=== PATIENT | female | born 1990 | race Caucasian/White ===

== ENCOUNTER 2018-01-11 09:30 | Inpatient (IN) | payer BC ==
[2018-01-11 10:15] VITALS: BMI 34.7
[2018-01-11] MEDS ORDERED: Butorphanol Tartrate 1 MG/ML VIAL SLOW IVP PRN (10:44)
[2018-01-11] MEDS ORDERED: Lactated Ringer's 1,000 ML IV SCH (10:44)
[2018-01-11] MEDS ORDERED: NS w/ Oxytocin 10 units 500 ML IV SCH (10:44)
[2018-01-11] MEDS ORDERED: Ondansetron HCl/PF 4 MG/2 ML Vial IVP PRN ×4 (10:44→22:41)
[2018-01-11] MEDS ORDERED: HYDROcodone/Acetaminophen 5/325 mg Tablet PO PRN ×2 (10:44)
[2018-01-11] MEDS ORDERED: Carboprost 250 MCG/ML AMP IM PRN (10:44)
[2018-01-11] MEDS ORDERED: Diphenoxylate HCl/Atropine Tablet PO PRN (10:44)
[2018-01-11] MEDS ORDERED: Lidocaine 1% (PF) 30 ML VIAL SC PRN (10:44)
[2018-01-11] MEDS ORDERED: Promethazine HCl 25 MG/ML VIAL IM PRN ×3 (10:44→22:41)
[2018-01-11] MEDS ORDERED: Ibuprofen 800 MG TAB PO PRN (10:44)
[2018-01-11] MEDS ORDERED: NS / Oxytocin 40 units/1000ml 1,000 ML IV PRN (10:44)
[2018-01-11 11:07] LABS: Hemoglobin 10.7 g/dL (12.0-16.0); Mean Corpuscular HGB CONC 33.3 g/dL (32.0-36.0); Mean Corpuscular Hemoglobin 29.1 pg (27.0-31.0); Mean Corpuscular Volume 87.2 fl (81.0-99.0); Mean Platelet Volume 7.3 fL (7.4-10.4); Platelet Count 207 thou/uL (130-400); RBC Distribution Width 13.1 % (11.5-14.5); Red Blood Cell (RBC) Count 3.69 mill/uL (4.20-5.40); White Blood Cell (WBC) Count 10.5 thou/uL (4.8-10.8)
[2018-01-11] MEDS ORDERED: Bupivacaine 0.75% 13.4 ML, fentaNYL Citrate/PF 400 MCG in Sodium Chloride 0.9% 78.6 ML EPIDURAL SCH (11:45)
[2018-01-11] MEDS ORDERED: DISCONTINUE ALL PREVIOUS NARCOTICS FS SCH (11:45)
[2018-01-11 11:50] LABS: HBSAg Index 0.12 S/CO (0-0.99); Hep B Surf Ag Non-Reactive S/CO (NonReactive)
[2018-01-11 11:52] LABS: Syphilis Antibody Nonreactive (Nonreactive); Syphilis Antibody Index 0.03 S/CO (<1.00 Non-Reactive)
[2018-01-11] MEDS ORDERED: Naloxone HCl 0.4 mg/ml Vial IVP PRN ×4 (11:56→22:41)
[2018-01-11] MEDS ORDERED: Lactated Ringer's 500 ML IV PRN (11:56)
[2018-01-11] MEDS ORDERED: Eucerin (Mineral Oil/Petrolatum,White) 30 gm Jar TOP PRN ×2 (11:56→22:41)
[2018-01-11] MEDS ORDERED: diphenhydrAMINE 50 MG/ML VIAL IVP PRN ×2 (11:56→22:41)
[2018-01-11] MEDS ORDERED: ePHEDrine/0.9% NaCl/PF SYRINGE 50 mg/10 ml SLOW IVP PRN (11:56)
[2018-01-11] MEDS ORDERED: Acetaminophen 325 MG TAB PO PRN (11:56)
[2018-01-11] MEDS ORDERED: Fentanyl 4mcg/Marcaine 0.1% Cassette 100 ML EPIDURAL SCH (12:00)
[2018-01-11] MEDS ORDERED: Communication Order-Pharmacy FS SCH ×2 (12:00→22:45)
[2018-01-11] MEDS: Lactated Ringer's 1,000 ML IV SCH (12:21)
[2018-01-11] MEDS ORDERED: Dexamethasone 20 MG/5 ML VIAL ONE (12:23)
[2018-01-11] MEDS ORDERED: PHENYLEPHRINE-NS 100 MCG/ML 10 ML SYRINGE ONE ×2 (12:23→21:57)
[2018-01-11] MEDS ORDERED: Ketorolac Tromethamine 30 MG/ML VIAL ONE ×2 (12:23→21:30)
--- NOTE | 2018-01-11 14:15 | PDOC.LDHP ---
Labor and Delivery H&P Allergies/Adverse Reactions: Allergies Allergy/AdvReac Type Severity Reaction Status Date / Time No Known Allergies Allergy Unverified 01/11/18 10:11
[2018-01-11] MEDS ORDERED: CEFAZOLIN/Water 2 GM/20 ML SYRINGE ONE (21:18)
[2018-01-11] MEDS ORDERED: Bicitra 30 ML UDCUP ONE (21:18)
[2018-01-11] MEDS ORDERED: Lidocaine 2% 10 ML INJ ONE (21:21)
[2018-01-11] MEDS ORDERED: CEFAZOLIN/Water 2 GM/20 ML SYRINGE SLOW IVP SCH (21:30)
[2018-01-11] MEDS ORDERED: Bicitra 30 ML UDCUP PO SCH (21:30)
[2018-01-11] MEDS ORDERED: Azithromycin 500 MG in Sodium Chloride 0.9% 250 ML 250 ML IVPB SCH (21:30)
[2018-01-11] MEDS ORDERED: Dexamethasone 4 mg/ml Vial ONE (21:30)
[2018-01-11] MEDS ORDERED: Oxytocin 10 UNITS/ML VIAL ONE (21:30)
[2018-01-11] MEDS ORDERED: Bupivacaine PF 0.5% 30 ML VIAL ONE (21:49)
[2018-01-11] MEDS ORDERED: Promethazine HCl 25 MG/ML VIAL ONE (21:50)
[2018-01-11] MEDS ORDERED: Fentanyl 100 MCG/2 ML VIAL ONE (21:57)
[2018-01-11 22:08] LABS: Actual Bicarbonate (HCO3v) 21 mEq/L (22-28); Analyzer IN Cardio OR; Base Excess -4.6 mEq/L (-2.0 to +3.0)
[2018-01-11] MEDS ORDERED: Meperidine HCl/PF 25 MG/ML VIAL ONE (22:13)
[2018-01-11] MEDS ORDERED: Morphine PF 1 MG/ML SYR ONE (22:27)
[2018-01-11] MEDS ORDERED: Naloxone HCl 0.4 mg/ml Vial IV PRN (22:41)
[2018-01-11] MEDS ORDERED: HYDROmorphone 2 MG/ML VIAL SLOW IVP PRN (22:41)
[2018-01-11] MEDS ORDERED: Promethazine HCl 25 MG SUPP PR PRN (22:41)
[2018-01-11] MEDS ORDERED: Meperidine HCl/PF 25 MG/ML VIAL SLOW IVP PRN (22:41)
[2018-01-11] MEDS ORDERED: Ketorolac Tromethamine 30 MG/ML VIAL IVP SCH (22:45)
[2018-01-12] MEDS ORDERED: Ondansetron HCl/PF 4 MG/2 ML Vial IVP PRN (01:53)
[2018-01-12] MEDS ORDERED: diphenhydrAMINE 25 MG CAP PO PRN (01:53)
[2018-01-12] MEDS ORDERED: Measles/Mumps/Rubella 10 MCG/0.5 ML VIAL SC ONE (01:53)
[2018-01-12] MEDS ORDERED: Adacel (T-DAP) 0.5 ML VIAL IM ONE (01:53)
[2018-01-12] MEDS ORDERED: NS / Oxytocin 40 units/1000ml 1,000 ML IV SCH (01:53)
[2018-01-12] MEDS ORDERED: Bisacodyl 10 MG SUPP PR PRN (01:53)
[2018-01-12] MEDS ORDERED: Simethicone Chewable 80 MG TAB PO PRN (01:53)
[2018-01-12] MEDS ORDERED: Promethazine HCl 25 MG/ML VIAL IM PRN (01:53)
[2018-01-12] MEDS ORDERED: Lactated Ringer's 1,000 ML IV SCH (01:53)
[2018-01-12] MEDS ORDERED: Lanolin Ointment 7 GM TUBE TOP PRN (01:53)
[2018-01-12] MEDS ORDERED: HYDROcodone/Acetaminophen 5/325 mg Tablet PO PRN ×3 (01:53→10:45)
[2018-01-12] MEDS: Lactated Ringer's 1,000 ML IV SCH (03:28)
[2018-01-12 05:33] LABS: Hemoglobin 8.1 g/dL (12.0-16.0); Mean Corpuscular HGB CONC 35.7 g/dL (32.0-36.0); Mean Corpuscular Hemoglobin 30.9 pg (27.0-31.0); Mean Corpuscular Volume 86.7 fl (81.0-99.0); Mean Platelet Volume 7.1 fL (7.4-10.4); Platelet Count 197 thou/uL (130-400); RBC Distribution Width 13.2 % (11.5-14.5); Red Blood Cell (RBC) Count 2.63 mill/uL (4.20-5.40); White Blood Cell (WBC) Count 10.5 thou/uL (4.8-10.8)
[2018-01-12] MEDS ORDERED: Ibuprofen 800 MG TAB PO SCH (06:00)
--- NOTE | 2018-01-12 07:14 | PDOC.PP ---
Post Progress Note Post Day #: 1 PO intake tolerated: yes Flatus: yes Ambulation: yes Vital Signs (12 hours) Temp Pulse Resp BP 01/12/18 04:00 99.5 F 87 16 113/71 01/12/18 02:30 98.2 F 80 16 114/59 L 01/12/18 01:30 99.3 F 84 16 122/61 Weight Weight 209 lb - Physical Examination Cardiovascular: no m/r/g, RRR Respiratory: clear to auscultation bilaterally Abdominal: + bowel sounds, lochia Extremities: negative homans (B) Skin: CS incision dry & intact Neurological: no gross focal deficits Psychiatric: A&Ox3, normal affect Result Diagrams: 01/12/18 04:42 Additional Labs: Post Labs Blood Type O POSITIVE 01/11/18 10:47 Hep Bs Antigen Non-Reactive S/CO (NonReactive) 01/11/18 10:47 (1) Arrest of dilation, delivered, current hospitalization Code(s): O62.1 - SECONDARY UTERINE INERTIA Status: Acute - Assessment/Plan doing well bandage dry. hct expected value. routine post cs care
--- NOTE | 2018-01-12 07:16 | OP ---
DATE OF PROCEDURE: 01/11/2018 TIME OF DICTATION: 2240 hours. PREOPERATIVE DIAGNOSIS: Nonreassuring heart rate tracing with failure to progress at 9 cm at 4 1 weeks' gestation. POSTOPERATIVE DIAGNOSES: Nonreassuring heart rate tracing with failure to progress at 9 cm at 41 weeks' gestation plus persistent right occiput posterior presentation with moderate meconium. PROCEDURE: Primary low transverse section without extension. SURGEON: Anibal Sandoval M.D. CAPTAIN WAITER/WAITRESS: Dmitry Rivera MD ANESTHESIA: Epidural. Nelson Crabtree M.D. ESTIMATED BLOOD LOSS: 1200 mL. MEDICATIONS: Two grams Ancef and 500 mg Zithromax intraoperatively. DEEP VENOUS THROMBOSIS PROPHYLAXIS: Sequential compression devices. DRAINS: Boogie to gravity. OPERATIVE FINDINGS: 1. Male ROP presentation with significant caput and molding, 8 pounds 4 ounces; 2, 8 Apgars; to nursery, gas pending. 2. Lower uterine segment without vertical extension, but wide hysterotomy accomplished for delivery of deep arrest infant head. 3. Normal appearing uterus, tubes, and ovaries. 4. Hemostasis with clearing urine at the end of the procedure. DISPOSITION: To the recovery room in good condition. DESCRIPTION OF OPERATIVE PROCEDURE: The patient had progressed to 9 cm and had been there for approx imately 3 hours. She began to have recurring prolonged variable decelerations to the 40s to 50s with long recovery. Decision was made to proceed with section on urgent basis. The patient was taken back and was dosed up to the appropriate level. She was given her 2 grams of Ancef prior to t he incision. Her epidural was somewhat sparing at the level of the skin and 10 mL of bupivacaine was injected at the level of the skin. A Pfannenstiel incision was made and carried down to the fascia. Midline was incised sharply superiorly and laterally with curved Gant scissors. Rectus dissected o ff sharply superiorly and inferiorly, divided in the midline. Peritoneum entered bluntly, taking car e to avoid trauma to the underlying viscera. Sascha O retractor placed inside. Low-transverse hyste rotomy made just above the level of the vesicouterine peritoneal fold. Because of the deep arrest, t his was at the level that the 's shoulder came out of the surgeon attempted to disengage the he ad, which was found to be right occiput posterior from his operating position on the patient's left. Assistance with elevation of the head by the nurse was carried out and the mobile sales assistant helped to break the vacuum and the deep arrest after the primary surgeon experienced fatigue with this. The primary surgeon then elevated the head, the rest of the way to hysterotomy delivered the . Cord clamp ed and cut and handed off to team in attendance. Cord gas was obtained. Cord blood sample was obtained. Placenta was removed manually. Hysterotomy was inspected and noted to be with the fin dings as noted in the operative findings. There was closed in a 2-layer level using 0 Monocryl sutur e. Small areas of bleeding along the edge of it were rendered hemostatic with a 0 chromic suture and then FloSeal was applied. After application of FloSeal, reinspection of the hysterotomy revealed it to be dry. The gutters were irrigated out bilaterally and noted to be dry and reinspection of hyste rotomy revealed it to be dry. The lap sponges had been placed inside to pack the bowel all the way w as removed. Counts were correct at this time and the Sascha O retractor removed. The rectus inspect ed and noted to be dry and the fascia reapproximated using running continuous 0 PDS suture. Subcutan eous tissue irrigated and rendered hemostatic with Bovie cautery, reapproximated using a 2-0 plain gu t. Skin reapproximated using 4-0 Monocryl and Dermabond and a pressure dressing applied. Uterus was noted to be firm afterwards. Estimated blood loss was 1200 mL secondary to the advanced nature of t he deep arrest and uterine atony; however, good uterine tone was noted at the end of the procedure. The patient received Zithromax 500 mg intraoperatively and was placed in the routine recovery with SC Ds and Boogie to drain.
[2018-01-12] MEDS: Ketorolac Tromethamine 30 MG/ML VIAL IVP PRN ×2 (08:34→15:05)
[2018-01-12] MEDS: Prenatal Vitamin 1 TAB PO SCH (09:11)
[2018-01-12] MEDS ORDERED: Meperidine HCl/PF 25 MG/ML VIAL IM PRN (10:45)
[2018-01-12] MEDS ORDERED: Zolpidem Tartrate 5 MG TAB PO PRN (10:45)
[2018-01-12] MEDS: Docusate Calcium (SURFAK) 240 MG CAP PO SCH (13:16)
[2018-01-12] MEDS ORDERED: Sodium Chloride 0.9% 10 ML ONE (14:03)
[2018-01-12] MEDS ORDERED: Bupivacaine/Epinephrine 0.25% 30 ML VIAL ONE (15:06)
[2018-01-12] MEDS ORDERED: Lidocaine 2% PF 5 ML VIAL ONE (15:06)
[2018-01-13] MEDS: Docusate Calcium (SURFAK) 240 MG CAP PO SCH ×3 (06:22→21:25)
[2018-01-13] MEDS: Ibuprofen 800 MG TAB PO SCH ×3 (06:23→21:25)
--- NOTE | 2018-01-13 07:28 | PDOC.PP ---
Post Progress Note Post Day #: 1 to 2 PO intake tolerated: yes Flatus: yes Ambulation: yes Vital Signs (12 hours) Temp Pulse Resp BP 01/12/18 20:00 98.3 F 101 H 18 121/70 Weight Weight 209 lb - Physical Examination General: NAD Cardiovascular: no m/r/g, RRR Respiratory: clear to auscultation bilaterally Abdominal: + bowel sounds, lochia, no distention, appropriately TTP Extremities: negative homans (B) Skin: CS incision dry & intact, no rash Neurological: no gross focal deficits Psychiatric: A&Ox3, normal affect Result Diagrams: 01/12/18 04:42 Additional Labs: Post Labs Blood Type O POSITIVE 01/11/18 10:47 Hep Bs Antigen Non-Reactive S/CO (NonReactive) 01/11/18 10:47 (1) Arrest of dilation, delivered, current hospitalization Code(s): O62.1 - SECONDARY UTERINE INERTIA Status: Acute - Assessment/Plan doing well. anticipate am 01/14 dc
[2018-01-13] MEDS: Prenatal Vitamin 1 TAB PO SCH (08:19)
[2018-01-14] MEDS: Ibuprofen 800 MG TAB PO SCH (06:02)
--- NOTE | 2018-01-14 07:29 | PDOC.PP ---
Post Progress Note Post Day #: 2.5 PO intake tolerated: yes Flatus: yes Ambulation: yes Vital Signs (12 hours) Temp Pulse Resp BP Pulse Ox 01/13/18 20:01 98.2 F 94 18 124/77 98 Weight Weight 209 lb - Physical Examination General: NAD Cardiovascular: no m/r/g, RRR Respiratory: clear to auscultation bilaterally, non-labored breathing Abdominal: + bowel sounds, lochia, no distention Extremities: negative homans (B) Skin: CS incision dry & intact, no rash Neurological: no gross focal deficits Psychiatric: A&Ox3, normal affect Result Diagrams: 01/12/18 04:42 Additional Labs: Post Labs Blood Type O POSITIVE 01/11/18 10:47 Hep Bs Antigen Non-Reactive S/CO (NonReactive) 01/11/18 10:47 (1) Arrest of dilation, delivered, current hospitalization Code(s): O62.1 - SECONDARY UTERINE INERTIA Status: Acute - Assessment/Plan doing well. dc home
[2018-01-14 08:24] VITALS: BP 135/63; TEMP 98.1
[2018-01-14] MEDS: Prenatal Vitamin 1 TAB PO SCH (09:09)
[2018-01-14] MEDS: Docusate Calcium (SURFAK) 240 MG CAP PO SCH (09:09)
== END 2018-01-14 11:00 | disposition home or self-care (01) | DRG 766 ==
LOC: L&D/OP 09:30 → L&D 10:23 → 3SW 01-12 01:15
PROVIDERS: ADMIT Obstetrics & Gynecology; ATTEND Obstetrics & Gynecology
PROC: 10D00Z1 Extraction of Products of Conception, Low, Open Approach (ICD-10-PCS; principal; 2018-01-11)
DX: O48.0 Post-term pregnancy (principal); O76 Abnormality in fetal heart rate and rhythm complicating labor and delivery; O77.0 Labor and delivery complicated by meconium in amniotic fluid; O64.0XX0 Obstructed labor due to incomplete rotation of fetal head, not applicable or unspecified; O62.1 Secondary uterine inertia; Z3A.41 41 weeks gestation of pregnancy; Z37.0 Single live birth
CPT/HCPCS: 36415; 51702; 82805; 85027; 86780; 86850; 86900; 86901; 87340; 99285; A4216; J0456; J1100; J1885; J2001; J2175; J2274; J2550; J2590; J3010; J7050; S0020

== ENCOUNTER 2020-01-30 09:55 | Outpatient (CLI) | payer BC, OTHER ==
[2020-01-31 12:20] LABS: SARS-CoV-2 MS2 Positive; SARS-CoV-2 N Gene Negative; SARS-CoV-2 S Gene Negative; SARS-CoV-2 orf1ab Negative
== END 2020-01-30 09:56 | disposition home or self-care (01) ==
LOC: SCSLAB 09:55
PROVIDERS: ATTEND Obstetrics & Gynecology
DX: Z01.812 Encounter for preprocedural laboratory examination (principal); Z11.59 Encounter for screening for other viral diseases
CPT/HCPCS: 87635; U0003

== ENCOUNTER → 2020-02-03 13:50 | Inpatient (IN) | payer BC ==
[2020-02-01 06:05] VITALS: BMI 36.6
[2020-02-01 06:15] LABS: Hemoglobin 10.1 g/dL (12.0-16.0); Mean Corpuscular Hemoglobin 26.9 pg (27.0-31.0); Mean Corpuscular Volume 81.5 fL (78.0-98.0); Platelet Count 224 thou/uL (130-400); RBC Distribution Width 15.1 % (11.5-14.5); Red Blood Cell (RBC) Count 3.76 mill/uL (4.20-5.40); White Blood Cell (WBC) Count 6.1 thou/uL (4.8-10.8)
--- NOTE | 2020-02-01 06:17 | HP ---
REASON FOR ADMISSION: Repeat section at term. HISTORY OF PRESENT ILLNESS: Ms. Tang is a 30-year-old 2, para 1, with an EDC of 02/06, 39 weeks and 2 days, who presents for repeat . . Blood type O positive, antibody negative, Pap negative, rubella immune, VDRL nonreactive, hepatitis B, GC, chlamydia negative. Group B strep negative. PAST MEDICAL HISTORY: None. SURGICAL HISTORY: . ALLERGIES: NONE. MEDICINES: vitamins. SOCIAL HISTORY: Denies tobacco, alcohol, or IV drug use. FAMILY HISTORY: Noncontributory. REVIEW OF SYSTEMS: Noncontributory. PHYSICAL EXAMINATION: GENERAL: White female, in no acute distress. LUNGS: Clear to auscultation bilaterally. HEART: Regular rate and rhythm. ABDOMEN: Soft, nontender. No rebound or guarding. Fundal height 39. FHTs 140s. GENITOURINARY: Vulva without lesions. Vagina without discharge. EXTREMITIES: No clubbing, cyanosis, or edema. IMPRESSION: Repeat section at term with estimated date of confinement of 02/07/20. PLAN: Repeat section with appropriate antibiotic and DVT prophylaxis. Patient is COVID-19 negative on 01/29. Job ID: [id number]
[2020-02-01 06:59] LABS: Syphilis Antibody Nonreactive (Nonreactive); Syphilis Antibody Index 0.03 S/CO (<1.00 Non-Reactive)
[2020-02-01 07:00] LABS: HBSAg Index 0.14 S/CO (0-0.99); Hep B Surf Ag Non-Reactive S/CO (NonReactive)
--- NOTE | 2020-02-01 08:43 | OP ---
DATE OF PROCEDURE: 02/01/2020 TIME OF SERVICE: 0800. PREOPERATIVE DIAGNOSIS: Prior section x1 at term. POSTOPERATIVE DIAGNOSIS: Prior section x1 at term plus lower uterine segment dehiscence. PROCEDURE PERFORMED: Repeat low-transverse section without extension. INTERNAL COMBUSTION ENGINE SUBASSEMBLER: ALONDRA Mendoza. ANESTHESIA: Subarachnoid block. MEDICATIONS: 2 g Ancef preincision. DVT PROPHYLAXIS: SCDs. DRAINS: Boogie to gravity, clear urine. OPERATIVE FINDINGS: 1. Vigorous male infant, cephalic presentation, clear fluid, to nursery, weight and Apgars pending. 2. QBL pending. 3. Approximately 3 x 2 cm lower uterine segment dehiscence with serosa only present. 4. Counts correct at the end of the procedure. DISPOSITION: Recovery room in good condition. DESCRIPTION OF PROCEDURE: After obtaining appropriate informed consent, the patient was taken to the operating room and subarachnoid block was achieved without difficulty. The patient was prepped and draped in the usual manner for . Previous Pfannenstiel identified, incised sharply, carried down the fascia, extended superiorly and laterally with curved Gant scissors, rectus dissected off sharply superiorly and inferiorly, divided in the midline. Peritoneal adhesions and omental adhesions to the lower uterine segment, anterior abdominal wall were encountered. These were taken down bluntly and sharply. The Sascha O retractor was placed inside. After placing Sascha O, it was realized that there was a significant dehiscence in the midline of the lower uterine segment. The 's head was visualized through the amnion at this level and the amnion was broken. Clear fluid noted and the 's head elevated through the dehisced hysterotomy delivered on the abdomen. Suction cord clamped and cut, handed off to Team in attendance. Usual cord blood sample obtained, placenta removed manually. The placenta was anterior, mid uterine. The lower margin came down to the level of dehiscence but no abnormal placentation or adherence was noted. The hysterotomy was noted to be without extension and was actually quite sick after removal of the distention from the indwelling fetus and was closed using a running locking #1 Monocryl suture x2. Good hemostasis was noted. Gutters were irrigated out bilaterally and reinspection of hysterotomy revealed it to be dry. Boogie catheter was checked and clear urine was noted in the tube. No evidence of bladder injury was noted. Sascha O retractor was removed. The rectus was inspected and noted to be dry. The fascia was reapproximated using an 0-PDS suture x2. Subcutaneous tissue was irrigated, rendered hemostatic with Bovie cautery, reapproximated using 2-0 plain gut, skin reapproximated using 4-0 Monocryl and Dermabond. Job ID: [id number]
[2020-02-01] MEDS: Lactated Ringer's 1,000 ML IV SCH ×4 (11:00→23:31)
[2020-02-01] MEDS: Prenatal Vitamin 1 TAB PO SCH (12:53)
[2020-02-01] MEDS: Ketorolac Tromethamine 30 MG/ML VIAL IVP PRN (16:24)
[2020-02-01] MEDS: Docusate Calcium (SURFAK) 240 MG CAP PO SCH (23:17)
[2020-02-02] MEDS: Ketorolac Tromethamine 30 MG/ML VIAL IVP PRN (01:18)
[2020-02-02 07:18] LABS: Hemoglobin 8.5 g/dL (12.0-16.0); Mean Corpuscular HGB CONC 33.6 g/dL (32.0-36.0); Mean Corpuscular Volume 83.3 fL (78.0-98.0); Platelet Count 181 thou/uL (130-400); RBC Distribution Width 14.7 % (11.5-14.5); Red Blood Cell (RBC) Count 3.03 mill/uL (4.20-5.40)
[2020-02-02] MEDS: Docusate Calcium (SURFAK) 240 MG CAP PO SCH ×2 (08:58→21:54)
[2020-02-02] MEDS: Simethicone Chewable 80 MG TAB PO PRN ×2 (08:58→21:53)
[2020-02-02] MEDS: Prenatal Vitamin 1 TAB PO SCH (08:58)
[2020-02-02] MEDS: Ibuprofen 800 MG TAB PO SCH ×2 (09:01→15:56)
--- NOTE | 2020-02-02 09:39 | PDOC.PP ---
Post Progress Note Post Day #: 1 PO intake tolerated: yes Flatus: yes Ambulation: yes Vital Signs (12 hours) Temp Pulse Resp BP Pulse Ox 02/02/20 08:05 97.7 F 77 18 114/65 97 02/02/20 04:10 98.0 F 85 18 114/57 L 02/02/20 01:00 98.4 F 73 18 111/58 L Weight Weight 220 lb - Physical Examination General: NAD Cardiovascular: no m/r/g, RRR Respiratory: clear to auscultation bilaterally, non-labored breathing Abdominal: + bowel sounds, lochia, no distention Extremities: negative homans (B) Skin: CS incision dry & intact Neurological: no gross focal deficits Psychiatric: A&Ox3, normal affect Result Diagrams: 02/02/20 07:02 Additional Labs: Post Labs Blood Type O POSITIVE 02/01/20 06:06 Hep Bs Antigen Non-Reactive S/CO (NonReactive) 02/01/20 06:06 - Assessment/Plan post cd day 1. hct 30 to 25. doing well home 02/02 or 02/03
[2020-02-02] MEDS: Lactated Ringer's 1,000 ML IV SCH ×2 (15:15→23:13)
[2020-02-03] MEDS: Ibuprofen 800 MG TAB PO SCH ×2 (01:13→06:34)
--- NOTE | 2020-02-03 06:56 | PDOC.PP ---
Post Progress Note Post Day #: 2 PO intake tolerated: yes Flatus: yes Ambulation: yes Vital Signs (12 hours) Temp Pulse Resp BP Pulse Ox 02/03/20 00:00 98.4 F 70 16 106/57 L 02/02/20 19:21 97.9 F 66 16 111/73 99 Weight Weight 220 lb - Physical Examination General: NAD Cardiovascular: no m/r/g, RRR Respiratory: clear to auscultation bilaterally, non-labored breathing Abdominal: + bowel sounds, lochia, no distention, appropriately TTP Extremities: negative homans (B) Skin: CS incision dry & intact, no rash Neurological: no gross focal deficits Psychiatric: A&Ox3, normal affect Result Diagrams: 02/02/20 07:02 Additional Labs: Post Labs Blood Type O POSITIVE 02/01/20 06:06 Hep Bs Antigen Non-Reactive S/CO (NonReactive) 02/01/20 06:06 - Assessment/Plan doing well desires dc. will send home
[2020-02-03 08:16] VITALS: BP 131/80; TEMP 99
[2020-02-03] MEDS: Prenatal Vitamin 1 TAB PO SCH (09:40)
[2020-02-03] MEDS: Docusate Calcium (SURFAK) 240 MG CAP PO SCH (09:40)
[~2020-02-03 13:50] MED LIST: Adacel (T-DAP) 0.5 ML SYRINGE IM ONE; Bicitra 30 ML UDCUP PO SCH; Butorphanol Tartrate 1 MG/ML VIAL SLOW IVP PRN; CEFAZOLIN 2 GM in Premix Bag 1 BAG IVPB SCH; Communication Order-Pharmacy FS SCH; Dexamethasone 20 MG/5 ML VIAL ONE; Famotidine/PF 20 mg/2ml Vial ONE; HYDROcodone/Acetaminophen 5/325 mg Tablet PO PRN; HYDROmorphone 2 MG/ML VIAL SLOW IVP PRN; Ibuprofen 800 MG TAB PO SCH; Ketorolac Tromethamine 30 MG/ML VIAL IVP PRN; Ketorolac Tromethamine 30 MG/ML VIAL ONE; L&D-Morphine 4 MG/ML VIAL SLOW IVP PRN; Lactated Ringer's 1,000 ML IV SCH; Lanolin Ointment 7 GM TUBE TOP PRN; MORPHINE 5 MG/10 ML PF VIAL ONE; Meperidine HCl/PF 25 MG/ML VIAL IM PRN; Meperidine HCl/PF 25 MG/ML VIAL SLOW IVP PRN; Methylergonovine 0.2 MG/ML VIAL ONE; Metoclopramide HCl 10 MG/2 ML VIAL ONE; NS / Oxytocin 40 units/1000ml 1,000 ML IV SCH; Naloxone HCl 0.4 mg/ml Vial IV PRN; Naloxone HCl 0.4 mg/ml Vial IVP PRN; Ondansetron HCl/PF 4 MG/2 ML Vial IVP PRN; Ondansetron PF 4 MG/2 ML Vial IVP PRN; Ondansetron PF 4 MG/2 ML Vial ONE; Oxytocin 10 UNITS/ML VIAL ONE; PHENYLEPHRINE-NS 100 MCG/ML 10 ML SYRINGE ONE; Promethazine HCl 25 MG SUPP PR PRN; Promethazine HCl 25 MG/ML VIAL IM PRN; Sodium Chloride 0.9% 10 ML ONE; Zolpidem Tartrate 5 MG TAB PO PRN; diphenhydrAMINE 25 MG CAP PO PRN; diphenhydrAMINE 50 MG/ML VIAL IVP PRN; hydrALAZINE 20 MG/ML VIAL SLOW IVP PRN
== END | disposition home or self-care (01) | DRG 788 ==
LOC: EDSTATUS 01-04 14:20 → L&D 02-01 05:46 → 3SW 02-01 11:21
PROVIDERS: ADMIT Obstetrics & Gynecology; ATTEND Obstetrics & Gynecology
PROC: 10D00Z1 Extraction of Products of Conception, Low, Open Approach (ICD-10-PCS; principal; 2020-02-01)
DX: O34.211 Maternal care for low transverse scar from previous cesarean delivery (principal); Z3A.39 39 weeks gestation of pregnancy; Z37.0 Single live birth
CPT/HCPCS: 36415; 85027; 86780; 86850; 86900; 86901; 87340; 87635; J1100; J1885; J2210; J2274; J2405; J2590; J2765; S0028; U0003